=== PATIENT | male | born 1995 | race African-American/Black ===

== ENCOUNTER 2017-08-03 07:40 | Emergency (ER) | payer BC ==
[~2017-08-03] VITALS: Ht 180.3 cm; Wt 72.6 kg
== END 2017-08-03 08:50 | disposition home or self-care (01) ==
LOC: ER 07:40
DX: L02.415 Cutaneous abscess of right lower limb (principal); L03.115 Cellulitis of right lower limb
CPT/HCPCS: 99282

== ENCOUNTER 2020-05-09 14:23 | Emergency (ER) | payer SELFPAY ==
[~2020-05-09] VITALS: Ht 180.3 cm; Wt 74.8 kg
== END 2020-05-09 15:20 | disposition home or self-care (01) ==
LOC: FSED 14:52
DX: R23.3 Spontaneous ecchymoses (principal)
CPT/HCPCS: 99282

== ENCOUNTER 2023-08-01 11:19 | Emergency (ER) | payer SELFPAY ==
[~2023-08-01] VITALS: Ht 180.3 cm; Wt 74.8 kg
[2023-08-01] MEDS ORDERED: IOPAMIDOL 370 MG/ML 100 ML INFUS..BTL INJ ONE (12:29)
[2023-08-01] MEDS ORDERED: SODIUM CHLORIDE 0.9% 1000ML 1,000 ML IV SCH (12:30)
[2023-08-01] MEDS ORDERED: CIPRO500 MG PO (14:03)
[2023-08-01 14:24] VITALS: O2SAT 100
== END 2023-08-01 14:30 | disposition home or self-care (01) ==
LOC: FSED 11:34 → ER 14:30
DX: R07.89 Other chest pain (principal); K52.9 Noninfective gastroenteritis and colitis, unspecified; R63.4 Abnormal weight loss; R03.0 Elevated blood-pressure reading, without diagnosis of hypertension; B20 Human immunodeficiency virus [HIV] disease; R94.31 Abnormal electrocardiogram [ECG] [EKG]
CPT/HCPCS: 71260; 74177; 80048; 81003; 82553; 84484; 85025; 93005; 99283; Q9967